=== PATIENT | male | born 1955 | race Two or more races ===

== ENCOUNTER 2019-02-28 15:30 | Emergency (ER) | payer SELFPAY ==
[~2019-02-28] VITALS: Ht 152.4 cm; Wt 93.4 kg
[2019-02-28 15:39] VITALS: BP 159/103
--- NOTE | 2019-02-28 15:40 | NUR ---
[id number], PT FELL OFF FROM THE 8 FOOT LADDER, C/O R BACK PAIN, ABRASION AT THE BACK OF THE HEAD, 07/21 PS, -KO, BRUISE R CHEST, TO ER BED 9,AOX3,NOTED W GRUNTING, LABORED AND RETRACTIONS WHILE BREATHING. HOOKED TO MONITOR, CHANGED TO DR JOSHUA LOZA AT BEDSIDE. STARTED LAC IV PERIPHERAL ACCESS, STARTED W FLUIDS AND PAIN MEDICATIONS GIVEN ORDERED.
[2019-02-28] MEDS ORDERED: ONDANSETRON HCL/PF 4 MG/2 ML VIAL ONE (15:43)
[2019-02-28] MEDS ORDERED: MORPHINE SULFATE INJ 4 MG/ML DISP.SYRIN ONE ×2 (15:44→16:02)
[2019-02-28 15:52] LABS: BASOPHILS % (AUTO) 0.5 % (0.0-2.0); EOSINOPHILS % (AUTO) 1.8 % (0.0-6.0); HEMATOCRIT 48 % (39-51); HEMOGLOBIN 16.1 g/dL (13.5-17.5); LYMPHOCYTES # (AUTO) 1.5 /CMM (0.8-4.8); LYMPHOCYTES % (AUTO) 24.2 % (20.0-44.0); MEAN CORPUSCULAR HGB CONC 34 g/dl (31.0-36.0); MEAN CORPUSCULAR VOLUME 78 fL (80-96); MONOCYTES # (AUTO) 0.4 /CMM (0.1-1.30); MONOCYTES % (AUTO) 6.1 % (2.0-12.0); NEUTROPHILS # (AUTO) 4.3 /CMM (1.8-8.9); NEUTROPHILS % (AUTO) 67.4 % (43.0-81.0); PLATELET COUNT (AUTO) 185 /CMM (150-450); RED BLOOD CELL COUNT(AUTO) 6.22 MIL/uL (4.5-6.0); WHITE BLOOD COUNT (AUTO) 6.4 K/uL (4.3-11.0)
[2019-02-28 15:59] LABS: CALCIUM, SERUM 8.2 mg/dL (8.5-10.1); CARBON DIOXIDE 24 mmol/L (21-32); CHLORIDE 104 mmol/L (98-107); GLUCOSE 143 mg/dL (74-106); POTASSIUM 3.8 mmol/L (3.5-5.1); SODIUM SERUM 140 mmol/L (136-145); UREA NITROGEN, BLOOD 15 mg/dL (7-18)
[2019-02-28] MEDS ORDERED: MORPHINE SULFATE INJ 2 MG/ML DISP.SYRIN IV ONE ×2 (16:00→16:30)
[2019-02-28] MEDS ORDERED: ONDANSETRON HCL/PF 4 MG/2 ML VIAL IVP ONE (16:00)
[2019-02-28] MEDS ORDERED: IV NS 0.9% 1,000 ML BAG IV ONE (16:00)
--- NOTE | 2019-02-28 16:04 | NUR ---
PT STILL IN SEVERE R RIB PAIN, RECEIVED VERBAL ORDER OF MORPHINE 4MG IV STAT. CARRIED OUT. IVP LAC 18G
[2019-02-28 16:05] LABS: ALANINE AMINOTRANSFERASE 46 U/L (12-78); ALBUMIN 3.8 g/dL (3.4-5.0); ALKALINE PHOSPHATASE 62 U/L (46-116); ASPARTATE AMINOTRANSFERASE 58 U/L (15-37); BILIRUBIN,DIRECT 0.2 mg/dL (0.0-0.2); BILIRUBIN,TOTAL 0.6 mg/dL (0.2-1.0); TOTAL PROTEIN, SERUM 7.2 g/dL (6.4-8.2)
--- NOTE | 2019-02-28 16:08 | NUR ---
REPORT GIVEN BY DR LEWIS TO TRIAGE DOCTOR OF [facility]UC[facility].
--- NOTE | 2019-02-28 16:10 | NUR ---
PT BEING TRANSFERRED TO [facility] VIA 911. REPORT GIVEN BY DR LEWIS TO EMT'S
== END 2019-02-28 16:11 | disposition short-term general hospital (02) ==
LOC: ER 15:36
DX: S22.41XA Multiple fractures of ribs, right side, initial encounter for closed fracture (principal); S27.321A Contusion of lung, unilateral, initial encounter; S00.03XA Contusion of scalp, initial encounter; W11.XXXA Fall on and from ladder, initial encounter; Y93.89 Activity, other specified; Y92.89 Other specified places as the place of occurrence of the external cause; Y99.8 Other external cause status
CPT/HCPCS: 36415; 71045; 80048; 80076; 84484; 85025; 85730; 93005 ×2; 96374; 96375; 99291; J2270 ×2; J2405; J7030